=== PATIENT | female | born 1955 | race American Indian/Alaskan Native ===

== ENCOUNTER 2016-04-25 08:04 | Outpatient (CLI) | payer MEDICARE ==
--- NOTE | 2016-04-25 09:49 | Mammography Report ---
RIGHT DIGITAL DIAGNOSTIC MAMMOGRAM with CAD and RIGHT BREAST ULTRASOUND: 04/25/16 CLINICAL: Right breast pain. COMPARISON:09/07/15 screening mammogram. FINDINGS: The breast is almost entirely fatty.No mass, architectural distortion or suspicious calcifications. Ultrasound of the right breast was performed in the upper-outer quadrant in the area of pain and demonstrated normal fatty and fibroglandular structures. No mass, cyst or shadowing. IMPRESSION: Negative right mammogram and negative right breast ultrasound. No explanation for breast pain. BI-RADS CATEGORY: 1 -- Negative RECOMMENDATION: Clinical followup and routine mammographic screening. COMMENT: Patient follow-up letters are generated by our [employer] application.
== END 2016-04-25 08:05 | disposition home or self-care (01) ==
LOC: SPVWC 08:04
PROVIDERS: ATTEND Internal Medicine
DX: N63 Unspecified lump in breast (principal)
CPT/HCPCS: 76642; G0206

== ENCOUNTER 2017-04-09 08:11 | Outpatient (CLI) | payer MEDICARE ==
--- NOTE | 2017-04-10 13:31 | Mammography Report ---
BILATERAL DIGITAL SCREENING MAMMOGRAM with CAD: 04/09/17 08:11:00 CLINICAL: Routine screening. COMPARISON: 04/25/16 right mammogram and 09/07/15 bilateral screening mammogram. FINDINGS: The breasts are mostly fatty with a few bilateral residual fibroglandular densities.No mass, architectural distortion or suspicious calcifications. IMPRESSION: No mammographic evidence of malignancy. BI-RADS CATEGORY: 1 -- Negative RECOMMENDATION: Routine mammographic screening in one year. COMMENT: Patient follow-up letters are generated by our [employer] application.
== END 2017-04-09 08:12 | disposition home or self-care (01) ==
LOC: SPVWC 08:11
PROVIDERS: ATTEND Internal Medicine
DX: Z12.31 Encounter for screening mammogram for malignant neoplasm of breast (principal)
CPT/HCPCS: 77067

== ENCOUNTER 2018-04-10 08:49 | Outpatient (CLI) | payer MEDICAID, MEDICARE ==
--- NOTE | 2018-04-10 15:58 | Mammography Report ---
BILATERAL DIGITAL SCREENING MAMMOGRAM with CAD: 04/10/18 08:49:00 CLINICAL: Routine screening. COMPARISON: 04/09/17 FINDINGS: There are bilateral scattered areas of fibroglandular density.No mass, architectural distortion or suspicious calcifications. IMPRESSION: No mammographic evidence of malignancy. BI-RADS CATEGORY: 1 -- Negative RECOMMENDATION: Routine mammographic screening in one year. COMMENT: Patient follow-up letters are generated by our [employer] application.
== END 2018-04-10 08:50 | disposition home or self-care (01) ==
LOC: SPVWC 08:49
PROVIDERS: ATTEND Internal Medicine
DX: Z12.31 Encounter for screening mammogram for malignant neoplasm of breast (principal); M54.5 Low back pain
CPT/HCPCS: 77067

== ENCOUNTER 2019-04-11 08:20 | Outpatient (CLI) | payer MEDICARE | END 2019-04-11 08:21 | disposition home or self-care (01) | LOC: SPVWC 08:20 | PROVIDERS: ATTEND Internal Medicine | DX: Z12.31 Encounter for screening mammogram for malignant neoplasm of breast (principal) | CPT/HCPCS: 77067 ==

== ENCOUNTER 2019-04-23 15:09 | Outpatient (CLI) | payer MEDICARE ==
--- NOTE | 2019-04-23 16:15 | Mammography Report ---
DIGITAL DIAGNOSTIC MAMMOGRAM WITH CAD, 04/23/2019 INDICATION: Recalled for asymmetries and calcifications. ABNORMAL MAMMOGRAM TECHNIQUE: Digital left mammographic imaging was performed. Magnification views were obtained. This examination was interpreted with the benefit of Computer-aided Detection analysis. COMPARISON: 04/11/2019 FINDINGS: Breast Density: There are scattered areas of fibroglandular density. Spot magnification LM and CC views were performed. Satisfactory effacement of asymmetries. A few arline gn-appearing punctate calcifications. No suspicious calcifications. IMPRESSION: No mammographic evidence of malignancy. Follow up recommendation: Routine yearly BI-RADS Category 2: Benign. A "normal" or negative report should not discourage follow up or biopsy of a clinically significant f inding. A written summary of these findings will be mailed to the patient. The patient will be entered into a mammography reporting system which will generate a reminder letter for the patient's next appointmen t at the appropriate interval. According to the [employer], yearly mammograms are recommended starting at age 40 and continuing as long as a woman is in good health. Breast MRI is recommended for women with an norma roximately 20-25% or greater lifetime risk of breast cancer, including women with a strong family his tory of breast or ovarian cancer and women who have been treated for Hodgkin's disease. Signer Name: Alfredo Castro MD Signed: 04/23/2019 4:11 PM Workstation Name: [id number]
== END 2019-04-23 15:10 | disposition home or self-care (01) ==
LOC: SPVWC 15:09
PROVIDERS: ATTEND Internal Medicine
DX: R92.8 Other abnormal and inconclusive findings on diagnostic imaging of breast (principal)

== ENCOUNTER 2020-04-12 08:41 | Outpatient (CLI) | payer MEDICARE ==
--- NOTE | 2020-04-13 09:21 | Mammography Report ---
DIGITAL SCREENING MAMMOGRAM WITH CAD, 04/13/2020 CLINICAL INFORMATION / INDICATION: Routine screening mammography. SCREENING MAMMO TECHNIQUE: Digital bilateral 2D mammography was obtained in the craniocaudal and mediolateral obliqu e projections. This examination was interpreted with the benefit of Computer-Aided Detection analysis . COMPARISON: 04/11/2019, 04/10/2018 FINDINGS: Breast Density: There are scattered areas of fibroglandular density. No dominant mass, suspicious calcifications, or architectural distortion in either breast. IMPRESSION: No mammographic evidence of malignancy. Follow up recommendation: Routine yearly BI-RADS Category 1: Negative. A "normal" or negative report should not discourage follow up or biopsy of a clinically significant f inding. A written summary of these findings will be mailed to the patient. The patient will be entered into a mammography reporting system which will generate a reminder letter for the patient's next appointmen t at the appropriate interval. The [employer] recommends yearly mammograms starting at age 40 and continuing as l jana as a woman is in good health. Breast MRI is recommended for women with an approximate 20-25% or greater lifetime risk of breast cancer, including women with a strong family history of breast or ova bob cancer or who have been treated for Hodgkin's disease. Signer Name: Oliver Zamora MD Signed: 04/13/2020 9:16 AM Workstation Name: [id number]
== END 2020-04-12 08:42 | disposition home or self-care (01) ==
LOC: SPVWC 08:41
PROVIDERS: ATTEND Internal Medicine
DX: Z12.31 Encounter for screening mammogram for malignant neoplasm of breast (principal)
CPT/HCPCS: 77067

== ENCOUNTER 2020-04-28 08:43 | Outpatient (CLI) | payer MEDICARE ==
--- NOTE | 2020-04-28 09:41 | Ultrasound Report ---
ULTRASOUND BREAST LEFT COMPLETE, 04/28/2020 CLINICAL INFORMATION / INDICATION: MASTODYNIA. TECHNIQUE: Complete sonographic evaluation of all 4 quadrants and retroareolar region was performed. COMPARISON: Prior mammogram 04/12/2020 FINDINGS: Complete ultrasound of the left breast reveals normal fibroglandular tissue. No suspicious cystic or solid lesion identified. IMPRESSION: 1. There is no sonographic abnormality to account for left breast pain, therefore clinical correlatio n is recommended. Follow up recommendation: Routine yearly BI-RADS Category 1: Negative. A normal or "negative" report should not preclude biopsy or follow-up of a clinically suspicious find ing. Signer Name: Radha De La Rosa MD Signed: 04/28/2020 9:37 AM Workstation Name: [id number]
== END 2020-04-28 08:44 | disposition home or self-care (01) ==
LOC: SPVWC 08:43
PROVIDERS: ATTEND Internal Medicine
DX: N64.4 Mastodynia (principal)

== ENCOUNTER 2021-04-13 09:41 | Outpatient (CLI) | payer MEDICARE ==
--- NOTE | 2021-04-14 12:07 | Mammography Report ---
DIGITAL SCREENING MAMMOGRAM WITH TOMOSYNTHESIS WITH CAD, 04/13/2021 CLINICAL INFORMATION / INDICATION: Routine Screening Mammography. TECHNIQUE: Digital bilateral 2D and 3D mammography with tomosynthesis was obtained in the craniocaud al and mediolateral oblique projections. Computer-Aided Detection (CAD) analysis was used for interp retation of this study. COMPARISON: 04/12/2020, 04/23/2019 FINDINGS: Breast Density: There are scattered areas of fibroglandular density. No dominant mass, suspicious calcifications, or architectural distortion in either breast. Benign-appearing central right breast calcifications are unchanged. No other significant interval jennifer nges. IMPRESSION: No mammographic evidence of malignancy. Follow up recommendation: Routine yearly BI-RADS Category 2: BENIGN. A "normal" or negative report should not discourage follow up or biopsy of a clinically significant f inding. A written summary of these findings will be mailed to the patient. The patient will be entered into a mammography reporting system which will generate a reminder letter for the patient's next appointmen t at the appropriate interval. The [employer] recommends yearly mammograms starting at age 40 and continuing as l jana as a woman is in good health. Breast MRI is recommended for women with an approximate 20-25% or greater lifetime risk of breast cancer, including women with a strong family history of breast or ova bob cancer or who have been treated for Hodgkin's disease. Signer Name: Jacob Harmon MD Signed: 04/14/2021 11:58 AM Workstation Name: [id number]
== END 2021-04-13 09:42 | disposition home or self-care (01) ==
LOC: SPVWC 09:41
PROVIDERS: ATTEND Internal Medicine
DX: Z12.31 Encounter for screening mammogram for malignant neoplasm of breast (principal); N64.89 Other specified disorders of breast
CPT/HCPCS: 77063; 77067